=== PATIENT | female | born 1960 | race Two or more races ===

== ENCOUNTER 2024-10-12 14:11 | Emergency (ER) | payer BC, MEDICAID ==
[~2024-10-12] VITALS: Ht 165.1 cm; Wt 84.0 kg
--- NOTE | 2024-10-12 15:28 | ED.PDOC ---
History of Present Illness HPI Comments 63 year old female with a past medical history of N-stemi 2022, Hyperlipemia, uterine cancer presents to the emergency department for labs. Patient states she went to see PCP and was sent for troponin levels due to chest pain. Patient states PCP was concerned due to elevated chronic right sided CP. Patient states she has been experiencing intermittent chest pain described as a pressure sensation, pain radiates to RT arm. No other symptoms or modifying factors present at this time. Denies shortness of breath Denies fevers, chills, Denies nausea, vomiting, diarrhea Denies headache, dizziness Chief Complaint: Abnormal LAB's Time Seen by MD: 15:20 Reviewed Notes: Nurses Notes, Medications, Allergies Allergies: Coded Allergies: NO KNOWN ALLERGIES (Unverified , 10/12/24) Information Source: Patient Mode of Arrival: Ambulatory Past Medical History PAST MEDICAL HISTORY: Cancer (uterine ), High Lipids Surgical History: Hysterectomy AGRICULTURE MANAGER History: No Pertinent AGRICULTURE MANAGER History Family History Family History: Reviewed,noncontributory to illness, No family hx of Cancer, No family hx of DM, No family hx of Heart clive, No family hx of HTN, No family hx ofKidney clive, No family hx of Liver clive, No family hx of Lung clive, No family hx of Stroke Social History Smoker: Non-Smoker Alcohol: Denies ETOH Use Drugs: Denies Drug Use Lives In: Home All Other Systems: Reviewed and Negative (as per HPI) Physical Exam General Appearance: Normal HEENT: Normal ENT Inspection, Pharynx Normal, TMs Normal Neck: Full Range of Motion, Non-Tender, Normal, Normal Inspection Respiratory: Chest Non-Tender, Lungs Clear, No Accessory Muscle Use, No Respiratory Distress, Normal Breath Sounds Cardiovascular: No Edema, No JVD, No Murmur, No Gallop, Normal Peripheral Pulses, Regular Rate/Rhythm Breast Exam: Deferred Gastrointestinal: No Organomegaly, Non Tender, No Pulsatile Mass, Normal Bowel Sounds, Soft Genitalia: Deferred Pelvic: Deferred Rectal: Deferred Extremities: No calf tenderness, Normal capillary refill, Normal inspection, Normal range of motion, Non-tender, No pedal edema Musculoskeletal : Apperance: Normal Neurologic: Alert, maintenance fitter II-XII nml as Tested, No Motor Deficits, Normal Affect, Normal Mood, No Sensory Deficits Cerebellar Function: Normal Reflexes: Normal Skin: Dry, Normal Color, Warm Lymphatic: No Adenopathy Was a procedure done? Was a procedure done?: No Differential Dx Considerations may include: see chart X-Ray, Labs, Meds, VS Vital Signs Date Time Temp Pulse Resp B/P (MAP) Pulse Ox O2 Delivery O2 Flow Rate FiO2 10/12/24 18:20 64 16 97 Room Air 10/12/24 18:20 98.7 66 16 136/67 (90) 98 98.7 10/12/24 17:55 63 10/12/24 14:13 99.0 96 16 140/75 99 99.0 Lab Test 10/12/24 17:15 10/12/24 16:35 10/12/24 15:55 Range/Units Troponin I High Sensitivity 6 5 </=34 ng/L Urine Color Light-yellow Yellow Urine Clarity Clear Clear Urine pH 6.0 5.0-9.0 Urine Specific [place] 1.013 1.001-1.035 Urine Protein Negative Negative Urine Ketones Negative Negative Urine Blood Negative Negative /uL Urine Nitrite Negative Negative Urine Bilirubin Negative Negative Urine Urobilinogen Normal Negative mg/dL Urine Leukocyte Esterase 2+ Negative /uL Urine RBC 1 0 - 4 /hpf Urine Microscopic WBC 6 H 0-5 /HPF Urine Squamous Epithelial Cells Few <5 /hpf Urine Bacteria Few H None Seen /hpf Urine Glucose Normal Normal mg/dL White Blood Count 7.2 4.4-10.8 10^3/uL Red Blood Count 4.76 4.0-5.20 10^6/uL Hemoglobin 13.3 12.2-16.2 g/dL Hematocrit 39.0 36.0-46.0 % Mean Corpuscular Volume 82.0 80.0-100.0 fL Mean Corpuscular Hemoglobin 28.0 28.0-32.0 pg Mean Corpuscular Hemoglobin Concent 34.1 32.0-36.0 g/dL Red Cell Distribution Width 14.1 11.8-14.3 % Platelet Count 285 140-450 10^3/uL Mean Platelet Volume 7.0 6.9-10.8 fL Neutrophils (%) (Auto) 72.5 37.0-80.0 % Lymphocytes (%) (Auto) 21.1 10.0-50.0 % Monocytes (%) (Auto) 4.5 0.0-12.0 % Eosinophils (%) (Auto) 1.6 0.0-7.0 % Basophils (%) (Auto) 0.3 0.0-2.0 % Neutrophils # (Auto) 5.2 1.6-8.6 10 ^3/uL Lymphocytes # (Auto) 1.5 0.4-5.4 10 ^3/uL Monocytes # (Auto) 0.3 0-1.3 10 ^3/uL Eosinophils # (Auto) 0.1 0-0.8 10 ^3/uL Basophils # (Auto) 0 0-0.2 10 ^3/uL Nucleated Red Blood Cells 0.0 % Sodium Level 143 136-145 mmol/L Potassium Level 4.6 3.5-5.1 mmol/L Chloride Level 106 98-107 mmol/L Carbon Dioxide Level 29 20-31 mmol/L Anion Gap 8 5-15 Blood Urea Nitrogen 10 9-23 mg/dL Creatinine 0.96 0.550-1.02 mg/dL Glomerular Filtration Rate Calc 67 >90 mL/min BUN/Creatinine Ratio 10.4 10.0-20.0 Serum Glucose 86 74-106 mg/dL Calcium Level 9.8 8.7-10.4 mg/dL Magnesium Level 2.0 1.6-2.6 mg/dL Total Bilirubin 0.5 0.2-1.0 mg/dL Aspartate Amino Transferase (AST) 19 13-40 U/L Alanine Aminotransferase (ALT) 18 7-40 U/L Alkaline Phosphatase 104 46-116 U/L B-Type Natriuretic Peptide 33.87 0-100 pg/mL Total Protein 7.6 5.7-8.2 g/dL Albumin 4.8 3.2-4.8 g/dL [place] [id number] Ph: [phone] DIAGNOSTIC IMAGING Diagnostic Imaging Report : [id number] Signed PATIENT: VASILIY STOCKTON ACCT: [id number] UNIT: [id number] : 1960 LOC: ER ROOM / BED: / AGE / SEX: 63 / F ADM STATUS: REG ER SERVICE [id number] ORDERING PHYSICIAN: TIMOTHY MCNULTY NP PROCEDURE(s): CXR2 - CHEST TWO VIEWS ROUTINE REASON: R/o PNA, TNX, Cardiomegaly, etc ORDER NUMBER(s): [id number], ACCESSION NUMBER(s): [id number] CHEST TWO VIEWS ROUTINE CLINICAL HISTORY: R/o PNA, TNX, Cardiomegaly, etc COMPARISON: None TECHNIQUE: Frontal and lateral view of the chest was obtained FINDINGS: Lines and Tubes: None Lungs: No focal consolidation. Pleura: No effusion. No pneumothorax. Cardiomediastinal contours: Unremarkable Bones: No acute osseous abnormality. IMPRESSION: No acute cardiopulmonary disease. ATED BY: LUCIANO DIMAS MD DICTATED DATE/TIME: 10/12/241523 SIGNED BY: LUCIANO DIMAS MD SIGNED DATE/TIME: 10/12/241523 CC: X-Ray, Labs, Meds, VS Comment 63 year old female with a past medical history of N-stemi 2022, Hyperlipemia, uterine cancer presents to the emergency department for labs. labs were ordered. CBC was ordered to exclude anemia, blood loss, or infection. CMP was ordered to exclude electrolyte abnormalities, renal failure, dehydration, hyperglycemia and/or liver enzyme abnormalities. Troponin and BNP were ordered to rule out myocardial infarction, or congestive heart failure. Urinalysis was ordered to rule out UTI or hematuria. Diagnostic imaging ordered by me and results interpreted by radiology : XR CHEST 2 VIEWS: IMPRESSION: No acute cardiopulmonary disease. No radiation of pain. Unrelated to activity. Pain not associated nausea, vomiting, or diaphoresis. Differential diagnosis includes: acute coronary syndrome, pulmonary embolism, pneumo-thorax, and aortic dissection. Based on the description of pain. Lack of association with exertion and or associated symptoms do not feel cardiac. Pt has normal ekg and troponin. Pt has no cardiac risk factors. In terms of pneumothorax no evidence of one seen on cxr. Pulmonary embolism also considered but has no risk factors including family history. Pt has no hypoxia. Do not feel patient has dissection based on description of pain and normal blood pressure. Pt is afebrile. no free air on cxr. At this unclear etiology of pain but feel it is not life threatening. I discussed my thought process with the patient and explained to them that I feel that very low likelyhood of life threatening condition but it still could be and if any concer ns to return to ER. Also explained to patient that things may change and important to return immediately if any concerns. Time of 1ST Reevaluation: 15:50 Reevaluation 1ST: Improved Patient Education/Counseling: Diagnosis, Treatment Family Education/Counseling: No Family Present SEPSIS Sepsis Screen Date sepsis recognized/suspect: Oct 12, 2024 Time Sepsis recognized/suspect: 141 Recent Procedure: No On Antibiotic Therapy: No Respiratory Rate >20: No Heart Rate >90: No Temp<36 C (96.8 F) or >38.3 C: No SBP <90 or MAP <65 mmHG: No New Acute Mental Status Change: No Is the patient on CPAP, BIPAP,: No Physician Orders Chest Two Views Routine (10/12/24 14:31) Electrocardigram (10/12/24 14:31) Electrocardigram (10/12/24 15:31) Electrocardigram (10/12/24 17:31) Vital Signs Date Time Temp Pulse Resp B/P (MAP) Pulse Ox O2 Delivery O2 Flow Rate FiO2 10/12/24 18:20 64 16 97 Room Air 10/12/24 18:20 98.7 66 16 136/67 (90) 98 98.7 10/12/24 17:55 63 10/12/24 14:13 99.0 96 16 140/75 99 99.0 Laboratory Tests Test 10/12/24 15:55 White Blood Count 7.2 10^3/uL (4.4-10.8) Departure 1 Departure Time of Disposition: 18:02 Impression: Primary Impression: Chest pain Qualified Codes: R07.9 - Chest pain, unspecified Disposition: 01 HOME / SELF CARE / HOMELESS Condition: Fair Discharged With: Self Critical Care Note Critical Care Time?: No Stability Stability form required: No Heart Score Heart Score: Heart Score Response (Comments) Value History Slightly Suspicious 0 EKG Normal 0 Age 45-64 1 Risk Factors 1 or 2 risk factors 1 Troponin Normal limit 0 Total 2 I personally scribed for TIMOTHY MCNULTY NP ([email or web address]) on 10/12/24 at 15:28. Electronically submitted by Aleshia Huffman ([email or web address]). I personally scribed for TIMOTHY MCNULTY NP ([email or web address]) on 8/11/25 at 16:08. Electronically submitted by Aleshia Huffman ([email or web address]). TIMOTHY MCNULTY NP Oct 12, 2024 15:28
[2024-10-12 16:08] LABS: Hematocrit 39.0 % (36.0-46.0); Hemoglobin 13.3 g/dL (12.2-16.2); Mean Corpuscular Hemoglobin 28.0 pg (28.0-32.0); Mean Corpuscular Volume 82.0 fL (80.0-100.0); Nucleated Red Blood Cells % 0.0 %
[2024-10-12 16:24] LABS: Alanine Aminotransferase 18 U/L (7-40); Albumin 4.8 g/dL (3.2-4.8); Alkaline Phosphatase 104 U/L (46-116); Anion Gap 8 (5-15); BUN/Creatinine Ratio 10.4 (10.0-20.0); Blood Urea Nitrogen 10 mg/dL (9-23); Calcium 9.8 mg/dL (8.7-10.4); Carbon Dioxide 29 mmol/L (20-31); Chloride 106 mmol/L (98-107); Glucose 86 mg/dL (74-106); Magnesium 2.0 mg/dL (1.6-2.6); Potassium 4.6 mmol/L (3.5-5.1); Sodium 143 mmol/L (136-145); Total Protein 7.6 g/dL (5.7-8.2)
[2024-10-12 16:25] LABS: Bilirubin, Total 0.5 mg/dL (0.2-1.0)
[2024-10-12 16:57] LABS: Urine Protein, UAD Negative (Negative)
[2024-10-12 18:20] VITALS: BP 136/67; PULSE 64; RESP 16; TEMP 98.7; O2SAT 97
--- NOTE | 2024-10-14 11:34 | ECG ---
[facility] Test Date: 2024-10-12 Test Time: 17:55:23 Pat Name: VASILIY STOCKTON Department: [facility] ED Patient ID: [id number] Room: Gender: F Customs Compliance Manager: osvaldo : 1960 Requested By: TIMOTHY MCNULTY Order Number: [id number] Reading MD: Measurements Intervals [place] Rate: 63 P: 71 MS: 140 QRS: -55 QRSD: 100 T: 28 QT: 425 QTc: 436 Interpretive Statements Sinus rhythm LAD, consider left anterior fascicular block Abnormal R-wave progression, early transition Borderline T abnormalities, anterior leads Please click the below link to view image of tracing.
== END 2024-10-12 18:22 | disposition home or self-care (01) ==
LOC: ER 14:11
DX: R07.89 Other chest pain (principal); E78.5 Hyperlipidemia, unspecified; Z90.710 Acquired absence of both cervix and uterus; Z79.899 Other long term (current) drug therapy
CPT/HCPCS: 36415; 71046; 80053; 81001; 83735; 83880; 84484; 85025; 93005